=== PATIENT | female | born 1960 | race Caucasian/White ===

== ENCOUNTER → 2020-09-17 14:27 | Outpatient (CLI) | payer OTHER, SELFPAY ==
--- NOTE | 2020-09-17 14:34 | DI.MG.S_ITS ---
BILATERAL DIGITAL DIAGNOSTIC MAMMOGRAM 3D/2D: 09/17/2020 CLINICAL: Bilateral breast pain. Comparison is made to exams dated: 11/13/2014 mammogram and 08/19/2003 mammogram - [facility]. The tissue of both breasts is heterogeneously dense. This may lower the sensitivity of mammography. No significant masses, calcifications, or other findings are seen in either breast. IMPRESSION: NEGATIVE There is no abnormality seen in either breast to correspond with the pain in the lower aspect, however, clinical followup is recommended. There is no mammographic evidence of malignancy. A 1 year screening mammogram is recommended. This exam was interpreted at Station ID: [id number]. NOTE: For mammograms, a report in lay terms will be sent to the patient. Approximately 15% of breast malignancies will not be visualized mammographically. In the management of a palpable breast mass, a negative mammogram must not discourage biopsy of a clinically suspicious lesion. Electronically Signed By: Madi Whelan M.D. [email or web address]/:09/17/2020 15:55:42 letter sent: Clinical Evaluation ACR BI-RADS Category 1: Negative [id number]
--- NOTE | 2020-09-17 14:38 | DI.RAD.S_ITS ---
PROCEDURE: XR CHEST 2V INDICATIONS: POSS PNEUMONIA TECHNIQUE: 2 views of the chest were acquired. COMPARISON: None. FINDINGS: Surgical changes and devices: None. Lungs and pleura: Lungs are clear. No pleural effusions or pneumothorax. Mediastinum: Mediastinal contours are normal. Heart size is normal. Bones and chest wall: No suspicious bony abnormalities. Soft tissues appear unremarkable. IMPRESSION: No acute cardiopulmonary abnormalities or focal airspace disease. Dictated by: Geovany Aponte M.D. on 09/17/2020 at 16:00 Approved by: Geovany Aponte M.D. on 09/17/2020 at 16:01
== END ==
PROVIDERS: Referring Provider Nurse Practitioner Family; Visit Provider Nurse Practitioner Family
DX: N64.4 Mastodynia (principal); R07.81 Pleurodynia; R07.1 Chest pain on breathing; Z87.891 Personal history of nicotine dependence
CPT/HCPCS: 71046; 77066; G0279

== ENCOUNTER 2021-07-21 10:41 | Emergency (ER) | payer OTHER, SELFPAY ==
[2021-07-21 10:48] VITALS: BP 231/105; PULSE 107; RESP 20; TEMP 36.7; O2SAT 99; BMI 29.3
--- NOTE | 2021-07-21 12:28 | ED.NECK ---
HPI - Neck Pain/Injury <ALVINO Hollingsworth - Last Filed: 07/21/21 20:37> General Chief Complaint: Neck Pain/Injury Stated Complaint: Cervical strain after injury- getting worse Time Seen by Provider: 07/21/21 12:27 Mode of arrival: Ambulatory History of Present Illness HPI Narrative: 61-year-old female presents to the emergency department complaining of left neck, trapezius, and shoulder pain after she fell forward into a filing cabinet at work on 06/16/2021. Patient drove herself to the emergency department today. She tells me that she seen for this at [facility], she was prescribed prednisone, tramadol, Robaxin and she reports that her pain has gotten worse and not better. Patient also endorses having a history of hypertension which she does not take any medications for. Her last visit paperwork has a blood pressure of 180/105 on it. Patient denies smoking, she denies history of medical problems. She was diagnosed with cervical radiculopathy. She denies any neurologic symptoms including numbness or tingling, weakness in any extremity, loss of bowel or bladder continence, spinal tenderness, muscle weakness fever, changes to her mentation, speech, vision, range of motion or other. Patient endorses that her left trapezius is very tight and painful. She states she has been taking her medication as prescribed, even took 2 muscle relaxers last night with which helped her sleep but she denies any pain improvement. Patient understands that she is driving today and I am unable to give her any sedative medications. Related Data Previous Rx's Medication Instructions Recorded cyclobenzaprine 10 mg tablet 10 mg PO Q8H PRN #20 tab 07/21/21 hydrocodone 5 mg-acetaminophen 325 1 tab PO Q6HR PRN #10 tab 07/21/21 mg tablet lisinopril 10 mg tablet 10 mg PO DAILY #20 tab 07/21/21 omeprazole magnesium 20 mg 20 mg PO DAILY #14 tab 07/21/21 tablet,delayed release (Prilosec OTC) Allergies Allergy/AdvReac Type Severity Reaction Status Date / Time Cephalosporins Allergy Intermediate Verified 07/21/21 10:48 Review of Systems <ALVINO Hollingsworth - Last Filed: 07/21/21 20:37> Review of Systems Narrative: General: denies fever, chills Head/Neck: denies headache, endorses left neck pain which radiates to her left scapula Eyes: denies visual changes, eye pain Cardio: denies chest pain, palpitations Respiratory: denies shortness of breath, cough GI: denies abdominal pain, nausea, vomiting, or diarrhea : denies dysuria, hematuria MSK: denies joint pain, muscle weakness Skin: denies rash, itching Neuro: denies numbness, tingling Patient History <ALVINO Hollingsworth - Last Filed: 07/21/21 20:37> Social History Smoking Status: Unknown if ever smoked Smoking Status: Unknown if ever smoked alcohol intake frequency: a few times a week Substance Use Type: does not use Exam <ALVINO Hollingsworth - Last Filed: 07/21/21 20:37> Narrative Exam Narrative: Independently reviewed vitals signs and nursing notes. General: Awake, alert, nontoxic, no cardiorespiratory distress Head/Neck: Atraumatic, neck full range of motion Eyes: EOMI, conjunctiva normal Nose: nares patent, no rhinorrhea Mouth/Throat: moist mucus membranes, no oral lesions Cardio: Regular rate and rhythm, no peripheral edema Respiratory: respirations unlabored without wheezing, stridor, or rales. No retractions. GI: Abdomen soft, nontender MSK: Moves all extremities, neurovascularly intact, no focal neuro deficits on exam, patient able to shrug shoulders without difficulty, turn head to the left and to the right, more pain when turning to right. Patient able to bend her chin to her chest with some left shoulder pain. No step-offs, no visible trauma. Skin: Normal capillary refill, no rash Neuro: Normal speech and cognition, normal gait Initial Vital Signs Initial Vital Signs: Vital Signs Temperature 98.0 F 07/21/21 10:48 Pulse Rate 107 H 07/21/21 10:48 Respiratory Rate 20 07/21/21 10:48 Blood Pressure 231/105 H 07/21/21 10:48 Pulse Oximetry 99 07/21/21 10:48 <Joe Michelle MD - Last Filed: 07/26/21 12:29> Initial Vital Signs Initial Vital Signs: Vital Signs Temperature 98.0 F 07/21/21 10:48 Pulse Rate 107 H 07/21/21 10:48 Respiratory Rate 20 07/21/21 10:48 Blood Pressure 231/105 H 07/21/21 10:48 Pulse Oximetry 99 07/21/21 10:48 Course <ALVINO Hollingsworth - Last Filed: 07/21/21 20:37> Orders Ordered: Discontinued Medications Ketorolac Tromethamine (Ketorolac 30 Mg/Ml Vial) 15 mg IM NOW ONE Stop: 07/21/21 12:47 Last Admin: 07/21/21 13:28 Dose: 15 mg Documented by: DAKSHA Lisinopril (Lisinopril 10 Mg Tablet) 10 mg PO NOW ONE Stop: 07/21/21 13:48 Last Admin: 07/21/21 14:08 Dose: 10 mg Documented by: SIDNEY Vital Signs Vital signs: Vital Signs - 8 hr 07/21/21 13:34 07/21/21 14:04 07/21/21 14:08 Pulse Rate 101 H Blood Pressure 222/128 H 197/114 H 197/114 H <Joe Michelle MD - Last Filed: 07/26/21 12:29> Orders Ordered: Discontinued Medications Ketorolac Tromethamine (Ketorolac 30 Mg/Ml Vial) 15 mg IM NOW ONE Stop: 07/21/21 12:47 Last Admin: 07/21/21 13:28 Dose: 15 mg Documented by: DAKSHA Lisinopril (Lisinopril 10 Mg Tablet) 10 mg PO NOW ONE Stop: 07/21/21 13:48 Last Admin: 07/21/21 14:08 Dose: 10 mg Documented by: SIDNEY Vital Signs Vital signs: Vital Signs - 8 hr 07/21/21 13:34 07/21/21 14:04 07/21/21 14:08 Pulse Rate 101 H Blood Pressure 222/128 H 197/114 H 197/114 H MDM - Neck Pain/Injury <ALVINO Hollingsworth - Last Filed: 07/21/21 20:37> Imaging Data CT - cervical spine: Radiologist's Impression: PROCEDURE:? CT CERVICAL SPINE WO CON ? INDICATIONS:? left sided trauma on 06/16, HTN ? TECHNIQUE:? Noncontrast 3 mm thick sections acquired from the skull base to the T4 level.? Sagittal and coronal reformats were then constructed.? For radiation dose reduction, the following was used:? automated exposure control, adjustment of mA and/or kV according to patient size.? ? COMPARISON:? None. ? FINDINGS:? Image quality:? Excellent.? ? Bones:? No fractures or dislocations.? Visualized superior ribs are intact.? ? Soft tissues:? Prevertebral soft tissues are normal in thickness.? No paravertebral hematomas.? No apical pneumothoraces.? ? ? IMPRESSION:? No CT evidence of acute traumatic cervical spine injury. ? ? ? Dictated by: Ghulam Werner M.D. on 07/21/2021 at 12:55 ? ? Approved by: Ghulam Werner M.D. on 07/21/2021 at 12:56 ? Thoracic Spine: Radiologist's Impression: ROCEDURE:? CT THORACIC SPINE WO CON ? INDICATIONS:? left sided trauma with neck to left scapula pain, HTN ? TECHNIQUE:? Noncontrast 3 mm thick sections acquired through the region of interest in the thoracic spine.? Sagittal and coronal reformats were then constructed.? For radiation dose reduction, the following was used:? automated exposure control.? ? COMPARISON:? None. ? FINDINGS:? Image quality:? Excellent.? ? Bones:? There is normal overall bony alignment.? No acute vertebral body compression fractures.? No suspicious sclerotic or lytic bony lesions.? Central spinal canal is of normal overall caliber.? ? Soft tissues:? No paravertebral masses or hematomas.? Visualized posteromedial lungs appear clear.? ? IMPRESSION:? No acute finding or spinal canal stenosis or neural foraminal narrowing. 4 ? ? Dictated by: Ghulam Werner M.D. on 07/21/2021 at 12:53 ? ? Approved by: Ghulam Werner M.D. on 07/21/2021 at 12:54 ? MDM Narrative Medical decision making narrative: 61-year-old female presents emergency department for worsening left-sided neck and shoulder pain since her injury on 07/17/2021. Patient was also found to be significantly hypertensive with an initial systolic blood show blood pressure of 230, she is not on any antihypertensives at this time. She endorses that she used to be on lisinopril [address] imaging of patient's C-spine and thoracic spine were without any foraminal narrowing without any acute traumatic injury or fracture or spinal canal stenosis. Patient does not have any systemic symptoms, she does not have any neurologic symptoms like numbness or tingling, sensation changes, weakness or other. This is most likely a muscle strain with cervical radiculopathy. She was given Flexeril, Toradol, and Lortab x1 with moderate relief of her symptoms. Patient was also given 10 mg of lisinopril x1, she was instructed to follow-up with her primary care provider Dr. Rios to address her hypertension and to use warm packs for her neck and shoulder pain in addition to medication. Patient was also given a prescription of lisinopril, she will make an appointment with Dr. Rios prior to the end of her 20 day course. Multiple etiologies of back pain considered including; Epidural abscess, cauda equina, mass occupying lesion, and other considered. Patient is appropriate and amenable to discharge home. Vital signs are stable on repeat examination is unremarkable. Patient has been informed of results. Patient has been given strict return to ER precautions for any new or worsening symptoms. Patient understands to follow up closely with outpatient providers as instructed. Patient understands plan and agrees to discharge home. All questions and concerns answered at this time. Discharge Plan Departure Patient Disposition: Home Clinical Impression: Cervical radiculopathy Strain of neck muscle Qualifiers: Encounter type: subsequent encounter Qualified Code(s): S16.1XXD - Strain of muscle, fascia and tendon at neck level, subsequent encounter Hypertension Qualifiers: Hypertension type: primary hypertension Qualified Code(s): I10 - Essential (primary) hypertension Instructions: Neck Sprain, DI for Neck Pain Activity Restrictions/Additional Instructions: *You have been diagnosed with a neck strain, cervical radiculopathy, and muscle strains in your left. Please continue to do heat, light massage, see your primary and discuss massage, physical therapy, and ongoing pain control. Please also discussed with her your elevated blood pressure. Today I suspect this is due to your steroids but it appears that you have elevated blood pressure on both visits so I just want this to be addressed in your visit as well. I hope you feel better soon. I sent your prescriptions to [facility], there is a muscle relaxer, a short course of Vicodin for breakthrough pain, omeprazole to protect your stomach, and a couple weeks worth of lisinopril at your previous dosing. *What to do: *Please continue to take your regular medications as directed. [ ] New medication prescriptions sent to your pharmacy: [ ] [ ] New medication written as a paper prescription [ ] No new medications given *Please follow up with your primary care provider in 2-3 days, call for an appointment. Let them know you were seen in the Emergency Department and that we ask that you be seen in follow up. We will electronically transmit a record of today's note if your PCP is in our system *If you do not have a primary care provider please contact the [facility] Resource line at [phone]. They will ask some questions about your medical history and help get you set up with a doctor in the community. *Return to Emergency Department if you should have any new, worsening or concerning symptoms, such as [fever greater than 101F, chills, worsening pain, persistent vomiting or other bothersome symptoms] Prescriptions: New lisinopril 10 mg tablet 10 mg PO DAILY Qty: 20 0RF cyclobenzaprine 10 mg tablet 10 mg PO Q8H PRN (Reason: muscle spasm) Qty: 20 0RF hydrocodone-acetaminophen 5-325 mg tablet 1 tab PO Q6HR PRN (Reason: pain) Qty: 10 0RF omeprazole magnesium [Prilosec OTC] 20 mg tablet,delayed release (DR/EC) 20 mg PO DAILY Qty: 14 0RF Referrals: Brett Rios MD [Primary Care Provider] - 5-7 days <Joe Michelle MD - Last Filed: 07/26/21 12:29> [facility] I was immediately available in the department for consultation. This documentation has been reviewed and I agree with assessment and plan. Supervised by Joe Michelle MD
--- NOTE | 2021-07-21 12:46 | DI.CT.S_ITS ---
PROCEDURE: CT CERVICAL SPINE WO CON INDICATIONS: left sided trauma on TECHNIQUE: Noncontrast 3 mm thick sections acquired from the skull base to the T4 level. Sagittal and coronal reformats were then constructed. For radiation dose reduction, the following was used: automated exposure control, adjustment of mA and/or kV according to patient size. COMPARISON: None. FINDINGS: Image quality: Excellent. Bones: No fractures or dislocations. Visualized superior ribs are intact. Soft tissues: Prevertebral soft tissues are normal in thickness. No paravertebral hematomas. No apical pneumothoraces. IMPRESSION: No CT evidence of acute traumatic cervical spine injury. Dictated by: Ghulam Werner M.D. on 07/21/2021 at 12:55 Approved by: Ghulam Werner M.D. on 07/21/2021 at 12:56
--- NOTE | 2021-07-21 12:46 | DI.CT.S_ITS ---
ROCEDURE: CT THORACIC SPINE WO CON INDICATIONS: left sided trauma with neck to left scapula pain, HTN TECHNIQUE: Noncontrast 3 mm thick sections acquired through the region of interest in the thoracic spine. Sagittal and coronal reformats were then constructed. For radiation dose reduction, the following was used: automated exposure control. COMPARISON: None. FINDINGS: Image quality: Excellent. Bones: There is normal overall bony alignment. No acute vertebral body compression fractures. No suspicious sclerotic or lytic bony lesions. Central spinal canal is of normal overall caliber. Soft tissues: No paravertebral masses or hematomas. Visualized posteromedial lungs appear clear. IMPRESSION: No acute finding or spinal canal stenosis or neural foraminal narrowing. 4 Dictated by: Ghulam Werner M.D. on 07/21/2021 at 12:53 Approved by: Ghulam Werner M.D. on 07/21/2021 at 12:54
[2021-07-21] MEDS: KETOROLAC 30 MG/ML VIAL 15 MG IM (13:28)
[2021-07-21 13:34] VITALS: BP 222/128
[2021-07-21 14:04] VITALS: BP 197/114
[2021-07-21 14:08] VITALS: BP 197/114; PULSE 101
[2021-07-21] MEDS: lisinopriL 10 MG TABLET PO (14:08)
== END 2021-07-21 14:32 | disposition home or self-care (01) ==
PROVIDERS: Emergency Provider Nurse Practitioner Critical Care Medicine; PCP Internal Medicine
DX: S16.1XXA Strain of muscle, fascia and tendon at neck level, initial encounter (principal); M25.512 Pain in left shoulder; W18.30XA Fall on same level, unspecified, initial encounter; Y99.0 Civilian activity done for income or pay
CPT/HCPCS: 72125; 72128; 96372; 99284; J1885

== ENCOUNTER 2023-07-31 16:48 | Emergency (ER) | payer OTHER, SELFPAY ==
[2023-07-31] VITALS (11 sets, daily range): BP systolic 140–165; BP diastolic 74–110; PULSE 92–110; RESP 12–26; TEMP 37.4; O2SAT 95–98; BMI 22.4
--- NOTE | 2023-07-31 17:40 | DI.CT.S_ITS ---
PROCEDURE: CT ABDOMEN PELVIS W CON INDICATIONS: JAUNDICE, UPPER ABD PAIN TECHNIQUE: After the administration of intravenous contrast, axial sections acquired from the lung bases to the pubic symphysis. Coronal and sagittal reformats were performed. For radiation dose reduction, the following was used: automated exposure control, adjustment of mA and/or kV according to patient size. COMPARISON: [facility], CT, ABDOMEN/PELVIS WITH CONTRAST, 09/07/2011, 15:12. FINDINGS: Image quality: Diagnostic. Lower Chest: No significant findings. ABDOMEN: Liver: Liver enlargement and innumerable indistinct low-density round lesions throughout both lobes of the liver. Gallbladder: Decompressed. Biliary ducts: Mild to moderate intrahepatic biliary dilatation. The extrahepatic common duct is normal caliber. Pancreas: Diminutive. Spleen: Enlarged. Adrenal Glands: No masses. Kidneys and Ureters: Symmetric enhancement. No nephrolithiasis or hydronephrosis. No hydroureter. Stomach and Bowel: There is an irregular, partially exophytic, circumferential and moderate length segment suspicious mass involving the distal transverse colon without discrete obstruction. Decompressed stomach. No small bowel obstruction. Surgically absent appendix. Peritoneum: There are several irregular soft tissue intraperitoneal masses, specifically to in the anterior right abdomen, and a few in the left lower abdomen. Trace free fluid. No extraluminal gas. Ventral Wall: No hernia. Abdominal Nodes: There are periportal and periceliac enlarged lymph nodes. Vessels: Aorta and inferior vena cava are normal in size. PELVIS: Pelvic Organs: The uterus is present and has a normal CT appearance. Bladder: Decompressed. Pelvic Nodes: No enlarged lymph nodes. Miscellaneous: No inguinal hernias are seen. Bones: No suspicious bone lesions. IMPRESSION: 1. Highly suspicious left abdominal/transverse colon mass concerning for malignancy. 2. Numerous liver lesions consistent with metastatic disease. 3. There is intrahepatic biliary dilatation suggesting probable obstructing metastatic lesion. The precise lesion is not well seen on the current study. ERCP with stenting may be necessary. 4. There are soft tissue masses within the peritoneal cavity suggesting metastatic disease. Dictated by: Eda Conklin M.D. on 07/31/2023 at 19:07 Approved by: Eda Conklin M.D. on 07/31/2023 at 19:14
[2023-07-31 17:48] LABS: Add Manual Diff / Slide Review NO; Basophils Absolute Auto 100 /uL (0-100); Basophils Percent Auto 0.3 % (0-2); Eosinophils Absolute Auto 100 /uL (0-450); Eosinophils Percent Auto 0.4 % (2-4); Hematocrit 37.9 % (36-46); Hemoglobin 12.5 g/dL (12.0-16.0); Lymphocytes Absolute Auto 1500 /uL (1100-4500); Lymphocytes Percent Auto 7.3 % (25-40); Mean Corpuscular HGB Conc 32.9 % (30-36); Mean Corpuscular Hemoglobin 28.5 PG (26-34); Mean Corpuscular Volume 86.7 fL (80-100); Monocytes Absolute Auto 2200 /uL (0-900); Neutrophils Absolute Auto 16100 /uL (1500-7000); Platelet Count 366 X10^3/uL (150-400); Red Blood Cell Count 4.38 X10^6/uL (4.0-5.2); Red Cell Distribution Width 14.6 % (11.6-14.8); White Blood Cell Count 19.9 X10^3/uL (4.5-11.0)
[2023-07-31 17:51] LABS: Urine Volume 10mL (spun)
[2023-07-31 17:53] LABS: Appearance Urine UA SL CLOUDY; Bilirubin Urine UA 3+ (NEGATIVE); Color Urine UA ORANGE; Glucose Urine UA NEGATIVE (Negative); Ketones Urine UA TRACE (NEGATIVE); Leukocyte Esterase Urine UA TRACE (NEGATIVE); Nitrite Urine UA POSITIVE (Negative); Occult Blood Urine UA NEGATIVE (Negative); Protein Urine UA 1+ (Negative); Specific Gravity Urine UA 1.025 (1.000-1.035); Urobilinogen Urine UA >=8.0 E.U./dL (0.2)
[2023-07-31 18:00] LABS: Alanine Aminotransferase 95 IU/L (<35); Albumin 3.9 g/dL (3.5-5.0); Albumin Globulin Ratio 0.8 (1.0-2.8); Alkaline Phosphatase 890 U/L (38-126); Aspartate Aminotransferase 198 IU/L (14-36); Bilirubin Total 10.6 mg/dL (0.2-1.3); Blood Urea Nitrogen 14 mg/dL (7-17); Calcium 10.5 mg/dL (8.4-10.2); Carbon Dioxide 26 mmol/L (22-32); Chloride 94 mmol/L (98-107); Estimated Glomerular Filt Rate > 60 mL/min (>60); Globulin 5.2 g/dL (1.7-4.1); Glucose 117 mg/dL (80-110); HEMOLYSIS < 15 (0-50); Lipase 36 U/L (23-300); Potassium 3.9 mmol/L (3.4-5.1); Sodium 134 mmol/L (137-145); Total Protein 9.1 g/dL (6.3-8.2)
[2023-07-31] MEDS: ONDANSETRON 4 MG/2 ML INJ IV (18:05)
[2023-07-31] MEDS: SODIUM CHLORIDE 0.9% 1,000 ML 1000 ML IV (18:05)
[2023-07-31 18:21] LABS: Bacteria Urine Moderate (10-30); RBC Urine None Seen (0-5/HPF); Squamous Epithelial Cell Urine None Seen (0-5/HPF); WBC Urine 5-10/HPF (0-5/HPF)
[2023-07-31 18:22] LABS: Culture Indicated Urine Specimen Cultured; Mucus Urine 1+ (Negative)
--- NOTE | 2023-07-31 18:48 | ED_ITS ---
HPI - Abdominal Pain General Chief Complaint: Abdominal Pain Stated Complaint: gallbladder issues Time Seen by Provider: 07/31/23 17:27 Source: patient Mode of arrival: Ambulatory History of Present Illness HPI narrative: This is a 63-year-old female with history of prior appendectomy and chronic pain who presents with 2 weeks of upper abdominal pain nausea, vomiting, fever at onset and fever last night and new onset of jaundice. She reports she has not use alcohol in a couple of weeks and prior to that was only having 3-5 drinks per week. No history of hepatitis no history of IV drug use no known exposures to hepatitis, no changes in bowel habits or urinary symptoms. She does not have respiratory symptoms. Prior abdominal surgeries are limited to appendectomy. Reports that she was on oxycodone for chronic pain and then switched to Suboxone, did not take Suboxone for several days because she was concerned it was causing her new jaundice. Her abdominal pain is primarily upper abdominal pain. She says it actually feels a bit better today. Related Data Previous Rx's Medication Instructions Recorded cyclobenzaprine 10 mg tablet 10 mg PO Q8H PRN muscle spasm #20 07/21/21 tabs hydrocodone 5 mg-acetaminophen 325 1 tab PO Q6HR PRN pain #10 tabs 07/21/21 mg tablet lisinopril 10 mg tablet 10 mg PO DAILY hypertension #20 07/21/21 tabs omeprazole magnesium 20 mg 20 mg PO DAILY ulcer prevention 07/21/21 tablet,delayed release (Prilosec #14 tabs OTC) Allergies Allergy/AdvReac Type Severity Reaction Status Date / Time Cephalosporins Allergy Intermediate Verified 07/21/21 10:48 amoxicillin Allergy Verified 07/31/23 17:12 Patient History Social History Smoking Status: Former smoker Smoking Status: Former smoker tobacco type: cigarettes alcohol intake frequency: a few times a week Substance Use Type: does not use Exam Narrative Exam Narrative: Alert, appears to be in no distress has scleral icterus Initial Vital Signs Initial Vital Signs: Vital Signs Temperature 99.3 F 07/31/23 17:12 Pulse Rate 110 H 07/31/23 17:12 Respiratory Rate 18 07/31/23 17:12 Blood Pressure 165/110 H 07/31/23 17:12 Pulse Oximetry 97 07/31/23 17:12 Oxygen Delivery Method Room Air 07/31/23 17:12 [facility] Head: normocephalic and atraumatic Eyes Other: Scleral icterus Neck Neck: supple and No lymphadenopathy Resp Effort & Inspection: normal respiratory effort and able to speak in complete sentences Auscultation: clear to auscultation bilaterally Cardio Rate: tachycardic Heart Sounds: S1 normal, S2 normal and no murmurs GI Other: Bowel sounds are normal. By palpation I do not think that she has ascites. Liver is enlarged, spleen is firm and enlarged. Abdomen is not tender. No stigmata of portal hypertension Skin Other: Jaundiced no rash no stigmata of IV drug use Neuro General: patient alert, patient awake and patient oriented x3 Course Orders Ordered: ED Orders 08/01/23 05:36 CBC Auto Diff [Complete Blood Count AUTO DIFF] Stat CMP [Comprehensive Metabolic Panel] Stat Lactate (Lactic Acid) Stat Sodium Chloride (Normal Saline 0.9%) 1,000 mls @ 125 mls/hr IV CONT GEE Last Admin: 07/31/23 22:50 Dose: 125 mls/hr Documented By: JEREMIAS Ondansetron HCl (Ondansetron 4 Mg/2 Ml Inj) 4 mg IV NOW PRN PRN Reason: Nausea And Vomiting Last Admin: 07/31/23 18:05 Dose: 4 mg Documented By: JEREMIAS Ondansetron HCl (Ondansetron 4 Mg Odt) 4 mg PO NOW PRN PRN Reason: Nausea And Vomiting Discontinued Medications Hydromorphone HCl (Hydromorphone 1 Mg Inj) 1 mg IV NOW ONE Stop: 07/31/23 20:36 Last Admin: 07/31/23 20:41 Dose: 1 mg Documented By: JUANIS Hydromorphone HCl (Hydromorphone 1 Mg Inj) 1 mg IV NOW ONE Stop: 07/31/23 23:23 Last Admin: 08/01/23 00:17 Dose: 1 mg Documented By: JAMAL Hydromorphone HCl (Hydromorphone 1 Mg Inj) 1 mg IV NOW ONE Stop: 08/01/23 05:47 Last Admin: 08/01/23 05:55 Dose: 1 mg Documented By: JAMAL Sodium Chloride (Normal Saline 0.9%) 1,000 mls @ 1,000 mls/hr IV BOLUS ONE Stop: 07/31/23 18:55 Last Infusion: 07/31/23 19:40 Dose: Infused Documented By: Admin: 07/31/23 18:05 Dose: 1,000 mls/hr Documented By: JEREMIAS Piperacillin Sod/Tazobactam (Sod 4.5 gm/ Sodium Chloride) 100 mls @ 200 mls/hr IV NOW ONE Stop: 07/31/23 18:46 Last Infusion: 07/31/23 19:40 Dose: Infused Documented By: Admin: 07/31/23 19:03 Dose: 200 mls/hr Documented By: JEREMIAS Piperacillin Sod/Tazobactam (Sod 4.5 gm/ Sodium Chloride) 100 mls @ 200 mls/hr IV NOW ONE Stop: 08/01/23 05:39 Last Admin: 08/01/23 06:03 Dose: 200 mls/hr Documented By: JAMAL Ondansetron HCl (Ondansetron 4 Mg/2 Ml Inj) 4 mg IV NOW ONE Stop: 07/31/23 18:46 Last Admin: 08/01/23 00:17 Dose: Not Given Documented By: JAMAL Consultations Consultation #1: D/W GI [place] Dr Cam- they have her on list for a bed, no beds at present Consultation #2: D/W [place] hospitalist, Dr Marcelo, accepts admission pending bed Vital Signs Vital signs: Vital Signs - 8 hr 07/31/23 22:30 07/31/23 23:00 07/31/23 23:30 Pulse Rate 96 H 99 H 96 H Respiratory Rate 22 12 26 H Blood Pressure Pulse Oximetry 95 98 96 Oxygen Delivery Method Room Air Room Air 08/01/23 00:00 08/01/23 00:23 08/01/23 00:23 Pulse Rate 95 H 97 H Respiratory Rate 24 21 Blood Pressure 146/93 H Pulse Oximetry 96 98 Oxygen Delivery Method Room Air 08/01/23 00:32 08/01/23 00:33 08/01/23 00:33 Pulse Rate 98 H 98 H Respiratory Rate 20 18 Blood Pressure 149/104 H Pulse Oximetry 97 Oxygen Delivery Method Room Air 08/01/23 01:00 08/01/23 01:30 08/01/23 02:00 Pulse Rate 91 H 86 85 Respiratory Rate 19 19 21 Blood Pressure Pulse Oximetry 97 95 95 Oxygen Delivery Method Room Air Room Air 08/01/23 02:00 08/01/23 02:30 08/01/23 03:00 Pulse Rate 83 89 Respiratory Rate 21 21 Blood Pressure 151/73 H Pulse Oximetry 94 96 Oxygen Delivery Method Room Air Room Air 08/01/23 03:30 08/01/23 04:00 08/01/23 04:00 Pulse Rate 87 90 Respiratory Rate 13 14 Blood Pressure 147/78 H Pulse Oximetry 97 96 Oxygen Delivery Method Room Air 08/01/23 04:30 Pulse Rate 88 Respiratory Rate 14 Blood Pressure Pulse Oximetry 97 Oxygen Delivery Method Room Air MDM - Abdominal Pain Lab Data Lab results narrative: Elevated bilirubin and alkaline phosphatase with normal lipase. Leukocytosis with a white count of 19.9. Urinalysis shows moderate bacteria and some pyuria, she has not reporting symptoms and she will be on antibiotics. Lactic is 2.5 07/31/23 17:30 07/31/23 17:30 Labs: Lab Results 07/31/23 07/31/23 Range/Units 17:30 22:17 WBC 19.9 H (4.5-11.0) X10^3/uL RBC 4.38 (4.0-5.2) X10^6/uL Hgb 12.5 (12.0-16.0) g/dL Hct 37.9 (36-46) % MCV 86.7 (80-100) fL MCH 28.5 (26-34) PG MCHC 32.9 (30-36) % RDW 14.6 (11.6-14.8) % Plt Count 366 (150-400) X10^3/uL Neut % (Auto) 81.0 H (50-75) % Lymph % (Auto) 7.3 L (25-40) % [place] % (Auto) 11.0 (3-14) % Eos % (Auto) 0.4 L (2-4) % Baso % (Auto) 0.3 (0-2) % Neut # (Auto) 42302 H (5448-4113) /uL Lymph # (Auto) 1500 (2409-7284) /uL [place] # (Auto) 2200 H (0-900) /uL Eos # (Auto) 100 (0-450) /uL Baso # (Auto) 100 (0-100) /uL Sodium 134 L (137-145) mmol/L Potassium 3.9 (3.4-5.1) mmol/L Chloride 94 L (98-107) mmol/L Carbon Dioxide 26 (22-32) mmol/L BUN 14 (7-17) mg/dL Creatinine 0.56 (0.52-1.04) mg/dL Estimated GFR > 60 (>60) mL/min BUN/Creatinine Ratio 25.0 H (6-22) Glucose 117 H (80-110) mg/dL Lactate 2.5 H 1.3 (0.7-2.1) mmol/L Calcium 10.5 H (8.4-10.2) mg/dL Total Bilirubin 10.6 H (0.2-1.3) mg/dL AST 198 H (14-36) IU/L ALT 95 H (<35) IU/L Alkaline Phosphatase 890 H (38-126) U/L Total Protein 9.1 H (6.3-8.2) g/dL Albumin 3.9 (3.5-5.0) g/dL Globulin 5.2 H (1.7-4.1) g/dL Albumin/Globulin Ratio 0.8 L (1.0-2.8) Lipase 36 (23-300) U/L Urine Color [place] Urine Appearance Sl cloudy Urine pH 5.0 (4.5-8.0) Ur Specific [place] 1.025 (1.000-1.035) Urine Protein 1+ H (Negative) Urine Glucose (UA) Negative (Negative) g/dL Urine Ketones Trace H (NEGATIVE) Urine Occult Blood Negative (Negative) Urine Nitrate Positive H (Negative) Urine Bilirubin 3+ H (NEGATIVE) Ur Bilirubin Confirm (Negative) Urine Urobilinogen >=8.0 (0.2) E.U./dL Ur Leukocyte Esterase Trace H (NEGATIVE) Urine RBC None seen (0-5/HPF) Urine WBC 5-10/hpf H (0-5/HPF) Ur Squamous Epith Cells None seen (0-5/HPF) Urine Bacteria Moderate (10-30) H (None) Urine Mucus 1+ H (Negative) Ur Culture Indicated? Specimen cultured Vol Urine Centrifuged 10ml (spun) Imaging Data CT scan - abdomen/pelvis: My Impression: Independent review of CT abdomen and pelvis, multiple lesions in the liver that are probably metastatic disease, no obvious pancreatic mass. We will await Radiology Radiologist's Impression: PROCEDURE: CT ABDOMEN PELVIS W CON INDICATIONS: JAUNDICE, UPPER ABD PAIN TECHNIQUE: After the administration of intravenous contrast, axial sections acquired from the lung bases to the pubic symphysis. Coronal and sagittal reformats were performed. For radiation dose reduction, the following was used: automated exposure control, adjustment of mA and/or kV according to patient size. COMPARISON: [facility], CT, ABDOMEN/PELVIS WITH CONTRAST, 09/07/2011, 15:12. FINDINGS: Image quality: Diagnostic. Lower Chest: No significant findings. ABDOMEN: Liver: Liver enlargement and innumerable indistinct low-density round lesions throughout both lobes of the liver. Gallbladder: Decompressed. Biliary ducts: Mild to moderate intrahepatic biliary dilatation. The extrahepatic common duct is normal caliber. Pancreas: Diminutive. Spleen: Enlarged. Adrenal Glands: No masses. Kidneys and Ureters: Symmetric enhancement. No nephrolithiasis or hydronephrosis. No hydroureter. Stomach and Bowel: There is an irregular, partially exophytic, circumferential and moderate length segment suspicious mass involving the distal transverse colon without discrete obstruction. Decompressed stomach. No small bowel obstruction. Surgically absent appendix. Peritoneum: There are several irregular soft tissue intraperitoneal masses, specifically to in the anterior right abdomen, and a few in the left lower abdomen. Trace free fluid. No extraluminal gas. Ventral Wall: No hernia. Abdominal Nodes: There are periportal and periceliac enlarged lymph nodes. Vessels: Aorta and inferior vena cava are normal in size. PELVIS: Pelvic Organs: The uterus is present and has a normal CT appearance. Bladder: Decompressed. Pelvic Nodes: No enlarged lymph nodes. Miscellaneous: No inguinal hernias are seen. Bones: No suspicious bone lesions. IMPRESSION: 1. Highly suspicious left abdominal/transverse colon mass concerning for malignancy. 2. Numerous liver lesions consistent with metastatic disease. 3. There is intrahepatic biliary dilatation suggesting probable obstructing metastatic lesion. The precise lesion is not well seen on the current study. ERCP with stenting may be necessary. 4. There are soft tissue masses within the peritoneal cavity suggesting metastatic disease. Dictated by: Eda Conklin M.D. on 07/31/2023 at 19:07 Approved by: Eda Conklin M.D. on 07/31/2023 at 19:14 [facility] Narrative Medical decision making narrative: 63-year-old female presenting with new onset jaundice abdominal pain and vomiting. Differential includes cholangitis, cholecystitis, biliary obstruction pancreatitis. She is hemodynamically stable but does have evidence of infection with a history of fevers last night and leukocytosis today. She was covered with Zosyn. Imaging suggest the presence of biliary obstruction and what appears to be metastatic disease in the liver as well as what appears to possibly be primary malignancy in the transverse colon. She will need ERCP and therefore we attempted to transfer out. At this point she is stable. Discharge Plan Departure Patient Disposition: [facility] Clinical Impression: Jaundice, Ascending cholangitis, Intrahepatic bile duct dilation Prescriptions: No Action lisinopril 10 mg tablet 10 mg PO DAILY Qty: 20 0RF cyclobenzaprine 10 mg tablet 10 mg PO Q8H PRN (Reason: muscle spasm) Qty: 20 0RF hydrocodone-acetaminophen 5-325 mg tablet 1 tab PO Q6HR PRN (Reason: pain) Qty: 10 0RF omeprazole magnesium [Prilosec OTC] 20 mg tablet,delayed release (DR/EC) 20 mg PO DAILY Qty: 14 0RF Referrals: Pamella Naylor ARNP [Primary Care Provider] -
[2023-07-31] MEDS: PIPERACILLIN/TAZO 4.5 GM in SODIUM CHLORIDE 0.9% 100 ML IV (19:03)
[2023-07-31 19:44] LABS: Lactate (Lactic Acid) 2.5 mmol/L (0.7-2.1)
[2023-07-31] MEDS: HYDROMORPHONE 1 MG INJ IV (20:41)
[2023-07-31 21:17] LABS: Reflexed Lactate in 2 Hours Y
--- NOTE | 2023-07-31 21:18 | ED.ABDPAIN ---
HPI - Abdominal Pain General Chief Complaint: Abdominal Pain Stated Complaint: gallbladder issues Time Seen by Provider: 07/31/23 17:27 Source: patient Mode of arrival: Ambulatory History of Present Illness HPI narrative: This is a 63-year-old female with history of prior appendectomy and chronic pain who presents with 2 weeks of upper abdominal pain nausea, vomiting, fever at onset and fever last night and new onset of jaundice. She reports she has not use alcohol in a couple of weeks and prior to that was only having 3-5 drinks per week. No history of hepatitis no history of IV drug use no known exposures to hepatitis, no changes in bowel habits or urinary symptoms. She does not have respiratory symptoms. Prior abdominal surgeries are limited to appendectomy. Reports that she was on oxycodone for chronic pain and then switched to Suboxone, did not take Suboxone for several days because she was concerned it was causing her new jaundice. Her abdominal pain is primarily upper abdominal pain. She says it actually feels a bit better today. Related Data Previous Rx's Medication Instructions Recorded cyclobenzaprine 10 mg tablet 10 mg PO Q8H PRN muscle spasm #20 07/21/21 tabs hydrocodone 5 mg-acetaminophen 325 1 tab PO Q6HR PRN pain #10 tabs 07/21/21 mg tablet lisinopril 10 mg tablet 10 mg PO DAILY hypertension #20 07/21/21 tabs omeprazole magnesium 20 mg 20 mg PO DAILY ulcer prevention 07/21/21 tablet,delayed release (Prilosec #14 tabs OTC) Allergies Allergy/AdvReac Type Severity Reaction Status Date / Time Cephalosporins Allergy Intermediate Verified 07/21/21 10:48 amoxicillin Allergy Verified 07/31/23 17:12 Patient History Social History Smoking Status: Former smoker Smoking Status: Former smoker tobacco type: cigarettes alcohol intake frequency: a few times a week Substance Use Type: does not use Exam Narrative Exam Narrative: Alert, appears to be in no distress has scleral icterus Initial Vital Signs Initial Vital Signs: Vital Signs Temperature 99.3 F 07/31/23 17:12 Pulse Rate 110 H 07/31/23 17:12 Respiratory Rate 18 07/31/23 17:12 Blood Pressure 165/110 H 07/31/23 17:12 Pulse Oximetry 97 07/31/23 17:12 Oxygen Delivery Method Room Air 07/31/23 17:12 [facility] Head: normocephalic and atraumatic Eyes Other: Scleral icterus Neck Neck: supple and No lymphadenopathy Resp Effort & Inspection: normal respiratory effort and able to speak in complete sentences Auscultation: clear to auscultation bilaterally Cardio Rate: tachycardic Heart Sounds: S1 normal, S2 normal and no murmurs GI Other: Bowel sounds are normal. By palpation I do not think that she has ascites. Liver is enlarged, spleen is firm and enlarged. Abdomen is not tender. No stigmata of portal hypertension Skin Other: Jaundiced no rash no stigmata of IV drug use Neuro General: patient alert, patient awake and patient oriented x3 Course Orders Ordered: Sodium Chloride (Normal Saline 0.9%) 1,000 mls @ 125 mls/hr IV CONT GEE Last Admin: 07/31/23 22:50 Dose: 125 mls/hr Documented By: JEREMIAS Ondansetron HCl (Ondansetron 4 Mg/2 Ml Inj) 4 mg IV NOW PRN PRN Reason: Nausea And Vomiting Last Admin: 07/31/23 18:05 Dose: 4 mg Documented By: JEREMIAS Ondansetron HCl (Ondansetron 4 Mg Odt) 4 mg PO NOW PRN PRN Reason: Nausea And Vomiting Discontinued Medications Hydromorphone HCl (Hydromorphone 1 Mg Inj) 1 mg IV NOW ONE Stop: 07/31/23 20:36 Last Admin: 07/31/23 20:41 Dose: 1 mg Documented By: JUANIS Hydromorphone HCl (Hydromorphone 1 Mg Inj) 1 mg IV NOW ONE Stop: 07/31/23 23:23 Last Admin: 08/01/23 00:17 Dose: 1 mg Documented By: JAMAL Sodium Chloride (Normal Saline 0.9%) 1,000 mls @ 1,000 mls/hr IV BOLUS ONE Stop: 07/31/23 18:55 Last Infusion: 07/31/23 19:40 Dose: Infused Documented By: Admin: 07/31/23 18:05 Dose: 1,000 mls/hr Documented By: JEREMIAS Piperacillin Sod/Tazobactam (Sod 4.5 gm/ Sodium Chloride) 100 mls @ 200 mls/hr IV NOW ONE Stop: 07/31/23 18:46 Last Infusion: 07/31/23 19:40 Dose: Infused Documented By: Admin: 07/31/23 19:03 Dose: 200 mls/hr Documented By: JEREMIAS Ondansetron HCl (Ondansetron 4 Mg/2 Ml Inj) 4 mg IV NOW ONE Stop: 07/31/23 18:46 Last Admin: 08/01/23 00:17 Dose: Not Given Documented By: JAMAL Consultations Consultation #1: D/W GI [place] Dr Cam- they have her on list for a bed, no beds at present Consultation #2: D/W [place] hospitalist, Dr Marcelo, accepts admission pending bed Vital Signs Vital signs: Vital Signs - 8 hr 07/31/23 21:30 07/31/23 21:30 07/31/23 22:00 Pulse Rate 92 H 97 H Respiratory Rate 17 25 H Blood Pressure 151/90 H Pulse Oximetry 97 96 Oxygen Delivery Method Room Air 07/31/23 22:30 07/31/23 23:00 07/31/23 23:30 Pulse Rate 96 H 99 H 96 H Respiratory Rate 22 12 26 H Blood Pressure Pulse Oximetry 95 98 96 Oxygen Delivery Method Room Air Room Air 08/01/23 00:00 08/01/23 00:23 08/01/23 00:23 Pulse Rate 95 H 97 H Respiratory Rate 24 21 Blood Pressure 146/93 H Pulse Oximetry 96 98 Oxygen Delivery Method Room Air 08/01/23 00:32 08/01/23 00:33 08/01/23 00:33 Pulse Rate 98 H 98 H Respiratory Rate 20 18 Blood Pressure 149/104 H Pulse Oximetry 97 Oxygen Delivery Method Room Air 08/01/23 01:00 08/01/23 01:30 08/01/23 02:00 Pulse Rate 91 H 86 85 Respiratory Rate 19 19 21 Blood Pressure Pulse Oximetry 97 95 95 Oxygen Delivery Method Room Air Room Air 08/01/23 02:00 08/01/23 02:30 08/01/23 03:00 Pulse Rate 83 89 Respiratory Rate 21 21 Blood Pressure 151/73 H Pulse Oximetry 94 96 Oxygen Delivery Method Room Air Room Air 08/01/23 03:30 08/01/23 04:00 08/01/23 04:00 Pulse Rate 87 90 Respiratory Rate 13 14 Blood Pressure 147/78 H Pulse Oximetry 97 96 Oxygen Delivery Method Room Air 08/01/23 04:30 Pulse Rate 88 Respiratory Rate 14 Blood Pressure Pulse Oximetry 97 Oxygen Delivery Method Room Air MDM - Abdominal Pain Lab Data Lab results narrative: Elevated bilirubin and alkaline phosphatase with normal lipase. Leukocytosis with a white count of 19.9. Urinalysis shows moderate bacteria and some pyuria, she has not reporting symptoms and she will be on antibiotics. Lactic is 2.5 07/31/23 17:30 07/31/23 17:30 Labs: Lab Results 07/31/23 07/31/23 Range/Units 17:30 22:17 WBC 19.9 H (4.5-11.0) X10^3/uL RBC 4.38 (4.0-5.2) X10^6/uL Hgb 12.5 (12.0-16.0) g/dL Hct 37.9 (36-46) % MCV 86.7 (80-100) fL MCH 28.5 (26-34) PG MCHC 32.9 (30-36) % RDW 14.6 (11.6-14.8) % Plt Count 366 (150-400) X10^3/uL Neut % (Auto) 81.0 H (50-75) % Lymph % (Auto) 7.3 L (25-40) % [place] % (Auto) 11.0 (3-14) % Eos % (Auto) 0.4 L (2-4) % Baso % (Auto) 0.3 (0-2) % Neut # (Auto) 83894 H (1888-9199) /uL Lymph # (Auto) 1500 (8584-8912) /uL [place] # (Auto) 2200 H (0-900) /uL Eos # (Auto) 100 (0-450) /uL Baso # (Auto) 100 (0-100) /uL Sodium 134 L (137-145) mmol/L Potassium 3.9 (3.4-5.1) mmol/L Chloride 94 L (98-107) mmol/L Carbon Dioxide 26 (22-32) mmol/L BUN 14 (7-17) mg/dL Creatinine 0.56 (0.52-1.04) mg/dL Estimated GFR > 60 (>60) mL/min BUN/Creatinine Ratio 25.0 H (6-22) Glucose 117 H (80-110) mg/dL Lactate 2.5 H 1.3 (0.7-2.1) mmol/L Calcium 10.5 H (8.4-10.2) mg/dL Total Bilirubin 10.6 H (0.2-1.3) mg/dL AST 198 H (14-36) IU/L ALT 95 H (<35) IU/L Alkaline Phosphatase 890 H (38-126) U/L Total Protein 9.1 H (6.3-8.2) g/dL Albumin 3.9 (3.5-5.0) g/dL Globulin 5.2 H (1.7-4.1) g/dL Albumin/Globulin Ratio 0.8 L (1.0-2.8) Lipase 36 (23-300) U/L Urine Color [place] Urine Appearance Sl cloudy Urine pH 5.0 (4.5-8.0) Ur Specific [place] 1.025 (1.000-1.035) Urine Protein 1+ H (Negative) Urine Glucose (UA) Negative (Negative) g/dL Urine Ketones Trace H (NEGATIVE) Urine Occult Blood Negative (Negative) Urine Nitrate Positive H (Negative) Urine Bilirubin 3+ H (NEGATIVE) Ur Bilirubin Confirm (Negative) Urine Urobilinogen >=8.0 (0.2) E.U./dL Ur Leukocyte Esterase Trace H (NEGATIVE) Urine RBC None seen (0-5/HPF) Urine WBC 5-10/hpf H (0-5/HPF) Ur Squamous Epith Cells None seen (0-5/HPF) Urine Bacteria Moderate (10-30) H (None) Urine Mucus 1+ H (Negative) Ur Culture Indicated? Specimen cultured Vol Urine Centrifuged 10ml (spun) Imaging Data CT scan - abdomen/pelvis: My Impression: Independent review of CT abdomen and pelvis, multiple lesions in the liver that are probably metastatic disease, no obvious pancreatic mass. We will await Radiology Radiologist's Impression: PROCEDURE: CT ABDOMEN PELVIS W CON INDICATIONS: JAUNDICE, UPPER ABD PAIN TECHNIQUE: After the administration of intravenous contrast, axial sections acquired from the lung bases to the pubic symphysis. Coronal and sagittal reformats were performed. For radiation dose reduction, the following was used: automated exposure control, adjustment of mA and/or kV according to patient size. COMPARISON: [facility], CT, ABDOMEN/PELVIS WITH CONTRAST, 09/07/2011, 15:12. FINDINGS: Image quality: Diagnostic. Lower Chest: No significant findings. ABDOMEN: Liver: Liver enlargement and innumerable indistinct low-density round lesions throughout both lobes of the liver. Gallbladder: Decompressed. Biliary ducts: Mild to moderate intrahepatic biliary dilatation. The extrahepatic common duct is normal caliber. Pancreas: Diminutive. Spleen: Enlarged. Adrenal Glands: No masses. Kidneys and Ureters: Symmetric enhancement. No nephrolithiasis or hydronephrosis. No hydroureter. Stomach and Bowel: There is an irregular, partially exophytic, circumferential and moderate length segment suspicious mass involving the distal transverse colon without discrete obstruction. Decompressed stomach. No small bowel obstruction. Surgically absent appendix. Peritoneum: There are several irregular soft tissue intraperitoneal masses, specifically to in the anterior right abdomen, and a few in the left lower abdomen. Trace free fluid. No extraluminal gas. Ventral Wall: No hernia. Abdominal Nodes: There are periportal and periceliac enlarged lymph nodes. Vessels: Aorta and inferior vena cava are normal in size. PELVIS: Pelvic Organs: The uterus is present and has a normal CT appearance. Bladder: Decompressed. Pelvic Nodes: No enlarged lymph nodes. Miscellaneous: No inguinal hernias are seen. Bones: No suspicious bone lesions. IMPRESSION: 1. Highly suspicious left abdominal/transverse colon mass concerning for malignancy. 2. Numerous liver lesions consistent with metastatic disease. 3. There is intrahepatic biliary dilatation suggesting probable obstructing metastatic lesion. The precise lesion is not well seen on the current study. ERCP with stenting may be necessary. 4. There are soft tissue masses within the peritoneal cavity suggesting metastatic disease. Dictated by: Eda Conklin M.D. on 07/31/2023 at 19:07 Approved by: Eda Conklin M.D. on 07/31/2023 at 19:14 [facility] Narrative Medical decision making narrative: 63-year-old female presenting with new onset jaundice abdominal pain and vomiting. Differential includes cholangitis, cholecystitis, biliary obstruction pancreatitis. She is hemodynamically stable but does have evidence of infection with a history of fevers last night and leukocytosis today. She was covered with Zosyn. Imaging suggest the presence of biliary obstruction and what appears to be metastatic disease in the liver as well as what appears to possibly be primary malignancy in the transverse colon. She will need ERCP and therefore we attempted to transfer out. At this point she is stable. Discharge Plan Departure Patient Disposition: [facility] Clinical Impression: Jaundice, Ascending cholangitis, Intrahepatic bile duct dilation Prescriptions: No Action lisinopril 10 mg tablet 10 mg PO DAILY Qty: 20 0RF cyclobenzaprine 10 mg tablet 10 mg PO Q8H PRN (Reason: muscle spasm) Qty: 20 0RF hydrocodone-acetaminophen 5-325 mg tablet 1 tab PO Q6HR PRN (Reason: pain) Qty: 10 0RF omeprazole magnesium [Prilosec OTC] 20 mg tablet,delayed release (DR/EC) 20 mg PO DAILY Qty: 14 0RF Referrals: Pamella Naylor ARNP [Primary Care Provider] -
[2023-07-31 22:33] LABS: Lactate 2HR (Lactic Acid Rflx) 1.3 mmol/L (0.7-2.1)
[2023-07-31] MEDS: SODIUM CHLORIDE 0.9% 1,000 ML 125 ML IV (22:50)
[2023-08-01] VITALS (31 sets, daily range): BP systolic 146–196; BP diastolic 73–109; PULSE 80–107; RESP 13–24; O2SAT 94–98
--- NOTE | 2023-08-01 00:16 | PC.NURSE ---
Pt accepted at [facility] by Minesh Bernal... awaiting bed assignment on the morning of 08/01 after 0800
[2023-08-01] MEDS: HYDROMORPHONE 1 MG INJ IV ×3 (00:17→16:04)
[2023-08-01] MEDS: PIPERACILLIN/TAZO 4.5 GM in SODIUM CHLORIDE 0.9% 100 ML IV (06:03)
[2023-08-01 06:15] LABS: Add Manual Diff / Slide Review NO; Basophils Absolute Auto 0 /uL (0-100); Basophils Percent Auto 0.3 % (0-2); Eosinophils Absolute Auto 200 /uL (0-450); Eosinophils Percent Auto 1.1 % (2-4); Hematocrit 30.9 % (36-46); Hemoglobin 10.4 g/dL (12.0-16.0); Lymphocytes Absolute Auto 2000 /uL (1100-4500); Lymphocytes Percent Auto 13.6 % (25-40); Mean Corpuscular HGB Conc 33.6 % (30-36); Mean Corpuscular Hemoglobin 29.2 PG (26-34); Mean Corpuscular Volume 87.1 fL (80-100); Monocytes Absolute Auto 1500 /uL (0-900); Neutrophils Absolute Auto 11100 /uL (1500-7000); Platelet Count 272 X10^3/uL (150-400); Red Blood Cell Count 3.54 X10^6/uL (4.0-5.2); Red Cell Distribution Width 14.8 % (11.6-14.8); White Blood Cell Count 14.9 X10^3/uL (4.5-11.0)
[2023-08-01 06:29] LABS: Alanine Aminotransferase 77 IU/L (<35); Albumin 2.9 g/dL (3.5-5.0); Albumin Globulin Ratio 0.7 (1.0-2.8); Alkaline Phosphatase 588 U/L (38-126); Aspartate Aminotransferase 144 IU/L (14-36); BUN Creatinine Ratio 22.7 (6-22); Bilirubin Total 8.3 mg/dL (0.2-1.3); Blood Urea Nitrogen 10 mg/dL (7-17); Calcium 9.1 mg/dL (8.4-10.2); Carbon Dioxide 23 mmol/L (22-32); Chloride 101 mmol/L (98-107); Estimated Glomerular Filt Rate > 60 mL/min (>60); Globulin 3.9 g/dL (1.7-4.1); Glucose 98 mg/dL (80-110); HEMOLYSIS < 15 (0-50); Potassium 4.1 mmol/L (3.4-5.1); Sodium 132 mmol/L (137-145); Total Protein 6.8 g/dL (6.3-8.2)
[2023-08-01] MEDS: SODIUM CHLORIDE 0.9% 1,000 ML 125 ML IV (06:34)
--- NOTE | 2023-08-01 09:02 | PC.NURSE ---
called [place] for bed assignment at 0800, was told there would be no beds till later this afternoon. will f/u later today
[2023-08-01] MEDS: lisinopriL 20 MG TABLET PO (09:08)
--- NOTE | 2023-08-01 09:15 | DI.MRI.S_ITS ---
PROCEDURE: MR ABDOMEN WO/W CON INDICATIONS: biliary dilation liver lesions TECHNIQUE: Coronal HASTE, axial 2D FLASH in- and [id number]; axial breath-hold T2 FSE. Dynamic axial VIBE during the administration of contrast; post-contrast coronal VIBE or 2D FLASH with fat saturation from the hepatic dome to the iliac crests. Optional diffusion weighted imaging and ADC may be performed. COMPARISON: [facility], CT, CT ABDOMEN PELVIS W CON, 07/31/2023, 17:51. FINDINGS: Image quality: Degraded by motion artifact. Lung bases: Unremarkable. Liver: Severe degree of hepatic metastatic disease is present, as before. Gallbladder: No gallstones or wall thickening. Biliary ducts: Moderate intrahepatic biliary ductal dilatation is present. Severe narrowing of the common hepatic duct is present. Pancreas: No ductal dilation. Spleen: Size is within normal limits. Adrenal Glands: No adrenal nodules. Kidneys and Ureters: No hydronephrosis. No solid mass. No complex renal cystic lesion which requires follow up. Stomach and Bowel: Transverse colon mass is present, as before. Peritoneum: Small amount of ascites.. No free air. Ventral Wall: No hernia. Abdominal Nodes: No retroperitoneal or mesenteric adenopathy by size criteria. Vessels: Aorta and inferior vena cava are normal in size. Bones: No aggressive osseous abnormality. IMPRESSION: 1. No change in intrahepatic biliary ductal dilatation compared to 07/31/2023. Severe narrowing of the common hepatic duct. Further assessment with ERCP is recommended, as before. 2. Severe hepatic metastatic disease is unchanged compared to 07/31/2023. 3. Colonic mass is unchanged compared to 07/31/2023. 4. No further emergent imaging is recommended. Dictated by: Shayna Moore M.D. on 08/01/2023 at 10:39 Approved by: Shayna Moore M.D. on 08/01/2023 at 10:43
[2023-08-01] MEDS: ENOXAPARIN 40 MG/0.4 ML SYRINGE SUBCUT (10:30)
[2023-08-01] MEDS: LORazepam 2 MG/ML INJ 0.5 MG IV (12:58)
--- NOTE | 2023-08-01 13:01 | PC.NURSE ---
called [place] for update on bed assignment 1300, they said no beds probably until 2300 tonight :(
[2023-08-01] MEDS: PIPERACILLIN/TAZO 3.375 GM in SODIUM CHLORIDE 0.9% 100 ML IV (13:35)
== END 2023-08-01 16:40 | disposition short-term general hospital (02) ==
PROVIDERS: Emergency Medicine; Emergency Provider Emergency Medicine; PCP Nurse Practitioner Family
DX: R17 Unspecified jaundice (principal); K83.09 Other cholangitis; K83.8 Other specified diseases of biliary tract; I10 Essential (primary) hypertension; R11.2 Nausea with vomiting, unspecified; Z79.899 Other long term (current) drug therapy
CPT/HCPCS: 36415; 74177; 74183; 80053; 81001; 83605; 83690; 85025; 87040; 87086; 93005; 96365; 96366; 96372; 96375; 96376; 99284; J1170; J1650; J2060; J2405; J2543; Q9967